=== PATIENT | male | born 1950 | race Caucasian/White ===

== ENCOUNTER 2023-10-11 09:05 | Inpatient (IN) | payer MEDICARE, SELFPAY ==
[2023-10-11] VITALS (26 sets, daily range): BP systolic 110–153; BP diastolic 52–91; PULSE 79–114; RESP 10–24; TEMP 36.6–37.1; O2SAT 85–96; BMI 33.4; BMI 32.6
--- NOTE | 2023-10-11 09:21 | ECG_ITS ---
[facility] Test Date: 2023-10-11 Pat Name: LEONARD FAUSTIN Department: Room: - Gender: Male Schedule Analyst: : 1950 Requested By: DAVID GALDAMEZ Order Number: [id number] Reading MD: BORIS BARTHOLOMEW Measurements Intervals [place] Rate: 110 P: 34 NH: 98 QRS: 83 QRSD: 96 T: 69 QT: 330 QTc: 395 Interpretive Statements 1120 Sinus tachycardia 2210 Short NH interval 9150 abnormal ECG Compared to ECG 05/05/2018 10:08:36 Short NH interval now present Sinus rhythm no longer present ST (T wave) deviation no longer present Electronically Signed On 10-12-2023 11:01:37 EST by BORIS BARTHOLOMEW
--- NOTE | 2023-10-11 09:26 | ED_ITS ---
HPI - General Adult General Chief complaint: Chest Pain Stated complaint: DIARRHEA/STOMACH PAIN/TIGHTNESS Time Seen by Provider: 10/11/23 09:03 Source: patient Mode of arrival: walk-in Limitations: no limitations History of Present Illness HPI narrative: Abdominal pain started about 5 days ago. He has had episodes of nausea and vomiting. He initially told me that he had blood and some episodes of the vomit. He later told the ED nurse that he spoke incorrectly and actually had been coughing up some phlegm that had blood in it. He also admitted to having profuse diarrhea. He tell me that his abdomen felt bloated and diffusely tender. Any attempt to eat over the last 24 hours was because the pain increased. He tell me that he feels like things are not moving out of his stomach. He also complains of persistent cough for the last several weeks and persistent shortness of breath with exertion. Prior surgical history includes right inguinal hernia repair and cholecystectomy, according to what the patient told me. Related Data Home Medications Medication Instructions Recorded Confirmed famotidine 20 mg tablet 20 mg PO .QHS 10/11/23 10/11/23 fluticasone fur. 100 mcg-umeclid 1 inh inhalation Q24H 10/11/23 10/11/23 62.5 mcg-vilant 25 mcg inhalat.powder (Trelegy Ellipta) furosemide 20 mg tablet 20 mg PO .QD PRN edema 10/11/23 10/11/23 ipratropium 0.5 mg-albuterol 3 mg 3 ml inhalation Q4H PRN shortness 10/11/23 10/11/23 (2.5 mg base)/3 mL nebulization of breath or wheezing soln metformin 500 mg tablet 500 mg PO QDAY 10/11/23 10/11/23 montelukast 10 mg tablet 10 mg PO .QHS 10/11/23 10/11/23 olmesartan 20 mg tablet 20 mg PO QDAY 10/11/23 10/11/23 rivaroxaban 20 mg tablet (Xarelto) 20 mg PO Q24H 10/11/23 10/11/23 Allergies Allergy/AdvReac Type Severity Reaction Status Date / Time No Known Drug Allergies Allergy Verified 10/11/23 09:14 PFSH PFSH Social History Smoking status: Former smoker Exam Narrative Exam Narrative: Nurses notes and vital signs reviewed and patient is not hypoxic. Afebrile General: Well-appearing and in no apparent distress. Skin: Warm, dry, no pallor noted. No rash to abdomen or flank. Head: Normocephalic, atraumatic. Neck: Supple, non-tender. Eye: Pupils are equal, round and EOMI. No scleral icterus. Cardiovascular: Regular Rate and Rhythm without murmur, gallop or rub. Respiratory: No accessory muscle use or respiratory distress. Lungs are clear to auscultation, no wheezing, rales or rhonchi Back: No CVA tenderness Musculoskeletal: normal ROM GI: Abdomen is soft, mildly distended. Normal bowel sounds. No masses appreciated. Diffuse tenderness to palpation. No rebound, guarding, or rigidity noted. Neurological: A&O x4. No cranial nerve dysfunction observed. No truncal ataxia. Moves all extremities. Sensation intact. Psychiatric: Cooperative and interactive. Normal mood and affect. Constitutional Vital Signs, click to edit/add: Last Vital Signs Temp 98.7 F 10/11/23 14:18 Pulse 82 10/11/23 14:18 Resp 20 10/11/23 14:18 BP 110/67 10/11/23 14:18 Pulse Ox 90 L 10/11/23 14:18 O2 Del Method Nasal Cannula 10/11/23 14:18 O2 Flow Rate 3.5 10/11/23 14:18 Course Vital Signs Vital signs: Vital Signs Pulse Rate 114 H 10/11/23 09:08 Respiratory Rate 20 10/11/23 09:08 Blood Pressure 153/91 H 10/11/23 09:08 Pulse Oximetry 86 L 10/11/23 09:08 Oxygen Delivery Method Room Air 10/11/23 09:08 Temperature 98.7 F 10/11/23 14:18 Pulse Rate 82 10/11/23 14:18 Respiratory Rate 20 10/11/23 14:18 Blood Pressure 110/67 10/11/23 14:18 Pulse Oximetry 90 L 10/11/23 14:18 Oxygen Delivery Method Nasal Cannula 10/11/23 14:18 Oxygen Delivery Flow Rate 3.5 10/11/23 14:18 Medical Decision Making MDM Narrative Medical decision making narrative: Patient was placed on silk top hat body maker and EKG obtained. Blood drawn and sent for evaluation. GI panel was also ordered. CT scan of the abdomen pelvis was ordered to be obtained with IV contrast. Our CT scanner is currently down. Patient will be sent [facility] by ambulance and then brought back after CT scan obtained. Patient received NS IVF, IV Zofran and IV Dilaudid for his symptoms. CT did not reveal any worrisome findings to account for his abdominal pain/GI symptoms. Patient found to be hypoxic on arrival - he has long history of tobacco use, chronic emphysema, likely COPD. He said that he has chronic hypoxia - usually 88-90% on room air. He has never seen a resourcing advisor. He does not have rescue inhaler at home. He admitted to cough producing whitish sputum/phlegm that began several weeks ago and has persisted. No treatment initiated and he did not see his PCP or other providers about this. Radiologist incorrectly identified the electrode wires as central lines on the formal report. patient previously had bilateral PEs that were apparently removed at hospital in [place]. He already got CT abd/pelvis of abdomen -0 we could not get IV large enough for power inecting to rule out PE. He is already on Eliquis daily, Case discussed with Dr Anguiano. He agreed to admit the patient for further treatment of COPD exacerbation and associated hypoxia. Patient may qualify for home O2. He received IV Solumedrol and duoneb therapy in the ED prior to got to [facility] for [place]. He said he does not feel much better after treatment. He is agreeable to admission. Lab Data Lab results reviewed: Yes I reviewed the patient's lab results Labs: Lab Results 10/11/23 10/11/23 10/11/23 Range/Units 09:20 09:30 09:43 WBC 9.8 (4.0-11.0) 10^3/uL RBC 5.11 (4.70-6.10) 10^6/uL Hgb 15.4 (14.0-18.0) g/dL Hct 47.8 (42.0-54.0) % MCV 93.5 (80.0-94.0) fL MCH 30.1 (25.9-34.0) pg MCHC 32.2 (29.9-35.2) g/dL RDW 13.5 (11.0-15.0) % Plt Count 216 (150-450) 10^3/uL MPV 9.7 (9.5-13.5) fL Neut % (Auto) 83.0 H (43.0-75.0) % Lymph % (Auto) 8.6 L (20.5-60.0) % Mccormick % (Auto) 7.8 (1.7-12.0) % Eos % (Auto) 0.1 L (0.9-7.0) % Baso % (Auto) 0.3 (0.2-2.0) % Neut # (Auto) 8.1 H (1.4-6.5) 10^3/uL Lymph # (Auto) 0.8 L (1.2-3.8) 10^3/uL Mccormick # (Auto) 0.8 (0.3-0.8) 10^3/uL Eos # (Auto) 0.0 (0.0-0.7) 10^3/uL Baso # (Auto) 0.0 (0.0-0.1) 10^3/uL Abs Immat Gran (auto) 0.02 (0.00-0.03) 10^3/uL Imm/Tot Granulo (auto) 0.2 (0.0-0.5) % PT 11.3 (9.0-11.6) sec INR 1.07 APTT 39.3 H (22.3-36.2) sec Sodium 134 L (136-145) mmol/L Potassium 3.8 (3.5-5.1) mmol/L Chloride 97 L (98-107) mmol/L Carbon Dioxide 25.8 (21.0-32.0) mmol/L Anion Gap 15.0 BUN 20.0 H (7.0-18.0) mg/dL Creatinine 1.06 (0.70-1.30) mg/dL Est GFR ( Amer) >60 (>=60) Est GFR (Non-Af Amer) >60 (>=60) BUN/Creatinine Ratio 18.9 Glucose 109 H (74-106) mg/dL Lactate 1.4 (0.4-2.0) mmol/L Calcium 8.2 L (8.5-10.1) mg/dL Magnesium 2.1 (1.8-2.4) mg/dL Total Bilirubin 1.1 H (0.2-1.0) mg/dL Direct Bilirubin 0.3 H (0.0-0.2) mg/dL AST 31 (15-37) U/L ALT 36 (16-63) U/L Alkaline Phosphatase 82 (46-116) U/L Troponin I High Sens <4.0 L (4.0-76.1) pg/mL NT-Pro-B Natriuret Pep 38.0 (<=900.0) pg/mL Total Protein 7.4 (6.4-8.2) g/dL Albumin 3.4 (3.4-5.0) g/dL Globulin 4.0 g/dL Albumin/Globulin Ratio 0.9 Procalcitonin <0.05 (0.00-0.50) ng/mL Influenza Type A Ag Negative Influenza Type B Ag Negative SARS-CoV-2 Ag (CV2AG) Negative (NEGATIVE) Blood Type Antibody Screen 10/11/23 Range/Units 09:55 WBC (4.0-11.0) 10^3/uL RBC (4.70-6.10) 10^6/uL Hgb (14.0-18.0) g/dL Hct (42.0-54.0) % MCV (80.0-94.0) fL MCH (25.9-34.0) pg MCHC (29.9-35.2) g/dL RDW (11.0-15.0) % Plt Count (150-450) 10^3/uL MPV (9.5-13.5) fL Neut % (Auto) (43.0-75.0) % Lymph % (Auto) (20.5-60.0) % Mccormick % (Auto) (1.7-12.0) % Eos % (Auto) (0.9-7.0) % Baso % (Auto) (0.2-2.0) % Neut # (Auto) (1.4-6.5) 10^3/uL Lymph # (Auto) (1.2-3.8) 10^3/uL Mccormick # (Auto) (0.3-0.8) 10^3/uL Eos # (Auto) (0.0-0.7) 10^3/uL Baso # (Auto) (0.0-0.1) 10^3/uL Abs Immat Gran (auto) (0.00-0.03) 10^3/uL Imm/Tot Granulo (auto) (0.0-0.5) % PT (9.0-11.6) sec INR APTT (22.3-36.2) sec Sodium (136-145) mmol/L Potassium (3.5-5.1) mmol/L Chloride (98-107) mmol/L Carbon Dioxide (21.0-32.0) mmol/L Anion Gap BUN (7.0-18.0) mg/dL Creatinine (0.70-1.30) mg/dL Est GFR ( Amer) (>=60) Est GFR (Non-Af Amer) (>=60) BUN/Creatinine Ratio Glucose (74-106) mg/dL Lactate (0.4-2.0) mmol/L Calcium (8.5-10.1) mg/dL Magnesium (1.8-2.4) mg/dL Total Bilirubin (0.2-1.0) mg/dL Direct Bilirubin (0.0-0.2) mg/dL AST (15-37) U/L ALT (16-63) U/L Alkaline Phosphatase (46-116) U/L Troponin I High Sens (4.0-76.1) pg/mL NT-Pro-B Natriuret Pep (<=900.0) pg/mL Total Protein (6.4-8.2) g/dL Albumin (3.4-5.0) g/dL Globulin g/dL Albumin/Globulin Ratio Procalcitonin (0.00-0.50) ng/mL Influenza Type A Ag Influenza Type B Ag SARS-CoV-2 Ag (CV2AG) (NEGATIVE) Blood Type A Positive Antibody Screen Negative Imaging Data CT abd/pelvis & CXR: My impression: no central lines - 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 Bilateral central lines. Electronically authenticated by: KHLOE ODELL Date: 10/11/2023 11:40 ECG Data Attestation: I personally reviewed and interpreted this ECG as follows: Interpretation: EKG interpretation: Emergency Department physician interpretation. Sinus tachycardia at 110bpm. Normal axis, short SC interval and no ST segment elevation or depression. Discharge Plan Discharge Chief Complaint: Chest Pain Clinical Impression: Hypoxia, COPD exacerbation Patient Disposition: Admitted as Observation Time of Disposition Decision: 14:42
[2023-10-11] MEDS: 0.9 % SODIUM CHLORIDE 1,000 ML 999 ML IV (09:53)
[2023-10-11] MEDS: ONDANSETRON PF 4 MG/2 ML VIAL IV (09:54)
[2023-10-11] MEDS: HYDROMORPHONE HCL 0.5 MG/0.5 ML SYRINGE IV (09:55)
[2023-10-11 10:09] LABS: Basophils Percent Auto 0.3 % (0.2-2.0); Eosinophils Percent Auto 0.1 % (0.9-7.0); Hematocrit 47.8 % (42.0-54.0); Hemoglobin 15.4 g/dL (14.0-18.0); Immature Granulocytes Abs Auto 0.02 10^3/uL (0.00-0.03); Immature Granulocytes Pct Auto 0.2 % (0.0-0.5); Lymphocytes Absolute Auto 0.8 10^3/uL (1.2-3.8); Lymphocytes Percent Auto 8.6 % (20.5-60.0); Mean Corpuscular HGB Conc 32.2 g/dL (29.9-35.2); Mean Corpuscular Hemoglobin 30.1 pg (25.9-34.0); Mean Corpuscular Volume 93.5 fL (80.0-94.0); Mean Platelet Volume 9.7 fL (9.5-13.5); Monocytes Absolute Auto 0.8 10^3/uL (0.3-0.8); Monocytes Percent Auto 7.8 % (1.7-12.0); Neutrophils Absolute Auto 8.1 10^3/uL (1.4-6.5); Platelet Count 216 10^3/uL (150-450); Red Blood Count 5.11 10^6/uL (4.70-6.10); Red Cell Distribution Width 13.5 % (11.0-15.0); White Blood Count 9.8 10^3/uL (4.0-11.0)
[2023-10-11 10:20] LABS: Magnesium 2.1 mg/dL (1.8-2.4)
[2023-10-11 10:27] LABS: Alanine Aminotransferase 36 U/L (16-63); Albumin Globulin Ratio 0.9; Albumin Level 3.4 g/dL (3.4-5.0); Alkaline Phosphatase 82 U/L (46-116); Aspartate Amino Transferase 31 U/L (15-37); BUN Creatinine Ratio 18.9; Bilirubin Total 1.1 mg/dL (0.2-1.0); Calcium 8.2 mg/dL (8.5-10.1); Carbon Dioxide 25.8 mmol/L (21.0-32.0); Chloride 97 mmol/L (98-107); Estimated GFR (African America >60 (>=60); Estimated GFR (Non-African Ame >60 (>=60); Glucose 109 mg/dL (74-106); Potassium 3.8 mmol/L (3.5-5.1); Sodium 134 mmol/L (136-145); Total Protein 7.4 g/dL (6.4-8.2)
[2023-10-11 10:28] LABS: Lactate/Lactic Acid 1.4 mmol/L (0.4-2.0)
[2023-10-11 10:32] LABS: Influenza Virus A Antigen Negative; Influenza Virus B Antigen Negative; Internal Control Within Normal Limits; SARS-CoV-2 Ag NEGATIVE (NEGATIVE)
[2023-10-11 10:34] LABS: INR 1.07; Partial Thromboplastin Time 39.3 sec (22.3-36.2); Prothrombin Time 11.3 sec (9.0-11.6)
--- NOTE | 2023-10-11 10:58 | XR_ITS ---
The [address] [address] Patient Name: LEONARD FAUSTIN MRN: [id number] date: 1950 Sex: M Assigned Patient Location: ER Current Patient Location: ER Accession/Order Number: [id number] Exam Date: 10/11/2023 11:10 Report Date: 10/11/2023 11:40 At the request of: KATHERYN BLOOM Procedure: XR chest 1V EXAM: XR chest 1V HISTORY: shortness of breath COMPARISON: Chest x-ray 09/02/2018. CT chest 03/13/2022. TECHNIQUE: AP portable upright chest x-ray. FINDINGS: Right lung, left upper midlung appear clear. No definite abnormality left lung base although assessment somewhat limited overlying soft tissues. No infiltrate or edema seen. Cardiac silhouette prominent accentuated by magnification. Right and left central lines noted, tips poorly visualized but probably in the area of the right atrium.. No pleural effusion or pneumothorax. XR/XR chest 1V IMPRESSION: No acute disease. Bilateral central lines. Electronically authenticated by: KHLOE ODELL Date: 10/11/2023 11:40
[2023-10-11] MEDS: METHYLPREDNISOLONE SOD SUCC PF 125 MG/2 ML VIAL IVP (11:13)
[2023-10-11] MEDS: IPRATROPIUM/ALBUTEROL SULFATE 3 ML AMPUL.NEB IH ×3 (11:26→22:32)
[2023-10-11 11:40] LABS: Troponin I High Sensitivity <4.0 pg/mL (4.0-76.1)
[2023-10-11 11:57] LABS: PROCALCITONIN <0.05 ng/mL (0.00-0.50)
[2023-10-11 14:18] LABS: Bilirubin Direct 0.3 mg/dL (0.0-0.2)
[2023-10-11] MEDS: LEVOFLOXACIN IN DEXTROSE 5 % 750 MG/150 ML IV.SOLN 100 MG IV (14:48)
--- NOTE | 2023-10-11 15:47 | P.HP_ITS ---
<Statement entered by Brandon Anguiano MD - 10/11/23 17:45> This documentation has been reviewed and approved. Patient not seen, chart reviewed. Reviewed notes from nurse practitioner. Agree with above findings. Possible mild dehydration with elevated BUN and mildly diminished sodium. Repeat labs in AM. Borderline hyperbilirubinemia- possibly chronic will repeat labs in AM. 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 He reports having COVID in August and has not felt well since then. His cough is persistent and difficult to mobilize phlegm. He also c/o increased phlegm production after eating and drinking, although he denies aspiration. He presented to the ED for further evaluation. Work up in the ED revealed hypoxia (85% on RA), but the remaining work up was mostly benign except for a mildly elevated bili (1.1). A chest x-ray was n egative for acute disease and an EKG revealed sinus tachycardia. CT of the abdomen was obtained due to his abdominal complaints and this was negative for acute findings. The CT did note a 1.8 cm nonspecific cystic lesion that could represent a pancreatic IPMN. A dedicated pancreas/biliary MR with contrast was recommended if further workup is clinically indicated. As the patient was wheezing and hypoxic, he is being admitted in observation to the hospitalist service for acute COPD exacerbation. At the time of my exam the patient just arrived to the medical surgical floor. He is not in any respiratory distress and is quite voluble with his conversation. He does report that he has qualified for home O2 in the past but refuses to use home O2. His main complaint is persistent cough after having COVID and tenacious phlegm. He admits that his abdominal pain is at the level of the diaphragm and is likely secondary to persistent coughing. His lung sounds are quite tight and we will treat with high-dose IV steroids, azithromycin for suspected associated bronchitis, and O2 supplementation to keep his sats at 90% or above. Opioid HPI Opioid Management Most Recent Opioid Data: Last Pain Assessment 10/11/23 17:30 Last ORT Total Score 3 10/11/23 16:05 Last ORT Risk Category Low Risk 10/11/23 16:05 Review of Systems ROS Status of ROS 10 or more systems reviewed and unremark able except as noted in history and below PFSH PFSH Medical History (Updated 10/11/23 @ 17:36 by Celia Hall NP) Pulmonary embolism ?I26.99 - Other pulmonary embolism without acute cor pulmonale (ICD-10) HTN (hypertension) ?I10 - Essential (primary) hypertension (ICD-10) Prediabetes ?R73.03 - Prediabetes (ICD-10) Trigger finger of left hand ?M65.30 - Trigger finger, unspecified finger (ICD-10) Chronic bronchitis ?J42 - Unspecified chronic bronchitis (ICD-10) Surgical History (Updated 10/11/23 @ 16:17 by Claudia Gasca LPN) H/O neck surgery ?Z98.890 - Other specified postprocedural states (ICD-10) Hx of hernia repair ?Z98.890 - Other specified postprocedural states (ICD-10) ?Z87.19 - Personal history of other diseases of the digestive system (ICD-10) History of cholecystectomy ?Z90.49 - Acquired absence of other specified parts of digestive tract (ICD- 10) History of tonsillectomy ?Z90.89 - Acquired absence of other organs (ICD-10) History of lung surgery ?Z98.890 - Other specified postprocedural states (ICD-10) History of knee surgery ?Z98.890 - Other specified postprocedural states (ICD-10) Family History (Updated 10/11/23 @ 16:13 by Claudia Gasca LPN) Mother Family history of myocardial infarction Family history of cancer Father Family history of COPD (chronic obstructive pulmonary disease) Family history of cancer Sister Family history of cancer Family history of diabetes mellitus Social History Smoking status: Former smoker Highest level of school completed/degree received: high school graduate Meds Home Medications and Allergies Home Medications Medication Instructions Recorded Confirmed Type famotidine 20 mg tablet 20 mg PO .QHS 10/11/23 10/11/23 History fluticasone fur. 100 mcg-umeclid 1 inh inhalation Q24H 10/11/23 10/11/23 History 62.5 mcg-vilant 25 mcg inhalat.powder (Trelegy Ellipta) furosemide 20 mg tablet 20 mg PO .QD PRN edema 10/11/23 10/11/23 History ipratropium 0.5 mg-albuterol 3 mg 3 ml inhalation Q4H PRN shortness 10/11/23 10/11/23 History (2.5 mg base)/3 mL nebulization of breath or wheezing soln metformin 500 mg tablet 500 mg PO QDAY 10/11/23 10/11/23 History montelukast 10 mg tablet 10 mg PO .QHS 10/11/23 10/11/23 History olmesartan 20 mg tablet 20 mg PO QDAY 10/11/23 10/11/23 History rivaroxaban 20 mg tablet (Xarelto) 20 mg PO Q24H 10/11/23 10/11/23 History Allergies Allergy/AdvReac Type Severity Reaction Status Date / Time No Known Drug Allergies Allergy Verified 10/11/23 09:14 Exam Constitutional Vital Signs, click to edit/add: Last Vital Signs Temp 98.7 F 10/11/23 14:18 Pulse 82 10/11/23 14:18 Resp 20 10/11/23 14:18 BP 110/67 10/11/23 14:18 Pulse Ox 90 L 10/11/23 14:18 O2 Del Method Nasal Cannula 10/11/23 14:18 O2 Flow Rate 3.5 10/11/23 14:18 Common normals: no apparent distress, oriented x3, alert and well nourished General appearance: cooperative Orientation/consciousness: Yes awake [facility] Common normals: normocephalic, head/scalp atraumatic, hearing grossly normal bilaterally, external nose normal and moist oral mucous membranes Eye Common normals: PERRL, EOMs intact bilaterally, conjunctivae normal and no scleral icterus Alignment: alignment normal Eyelid: eyelids normal Neck & C-Spine Common normals: full ROM, supple and no JVD Chest Common normals: inspection of chest normal Chest: symmetrical chest wall rise Respiratory Common normals: normal respiratory effort, no retractions and no use of accessory muscles Effort & inspection: able to speak in complete sentences Auscultation: wheezes (EE faint throughout) and diminished lung sounds (Throughout. Very tight, poor air exchange) Cardio Common normals: no JVD, regular rate, regular rhythm, S1 normal heart sound, S2 normal heart sound, no gallops, no clicks, no murmurs, no rub and peripheral pulses 2+ throughout GI Common normals: Normal to inspection, nondistended, normoactive bowel sounds present, soft to palpation, non-tender, no hepatosplenomegaly, no masses and no bruits Bladder/kidney exam: bladder normal to palpation Back & Pelvis Common normals: thoracic and lumbar spine normal to inspection Extremity Common normals: normal capillary refill and no pedal edema General: normal exam except as noted; no clubbing and no cyanosis Neuro [place] Coma Scale: GCS not evaluated Common normals: CN's II-XII intact bilaterally, moves all extremities and no focal motor deficits Motor exam: strength 5/5 throughout Psych Common normals: mental status grossly normal, thought process normal, affect normal and activity/motor behavior normal Results Labs Labs: Short CBC 10/11/23 Range/Units 09:30 WBC 9.8 (4.0-11.0) 10^3/uL Hgb 15.4 (14.0-18.0) g/dL Hct 47.8 (42.0-54.0) % Plt Count 216 (150-450) 10^3/uL BMP 10/11/23 09:30 Sodium 134 L Potassium 3.8 Chloride 97 L Carbon Dioxide 25.8 BUN 20.0 H Creatinine 1.06 Glucose 109 H Calcium 8.2 L Liver Function 10/11/23 10/11/23 Range/Units 09:20 09:30 Total Bilirubin 1.1 H (0.2-1.0) mg/dL Direct Bilirubin 0.3 H (0.0-0.2) mg/dL AST 31 (15-37) U/L ALT 36 (16-63) U/L Alkaline Phosphatase 82 (46-116) U/L Albumin 3.4 (3.4-5.0) g/dL Pulse Oximetry Attestation: I have reviewed the pertinent pulse oximetry results. Imaging Chest x-ray: Attestation: I have reviewed the pertinent imaging results. Radiologist's impression: IMPRESSION: No acute disease. Bilateral central lines. Addendum: No central lines are present. The findings are due to monitoring leads. CT scan - abdomen: Attestation: I have reviewed the pertinent imaging results. Radiologist's impression: Impression: No acute process in the abdomen/pelvis. 1.8 cm cystic lesion of the pancreatic head/uncinate, unspecific, but much may represent pancreatic IPMN. Compare with prior studies, if available. Could further characterize with dedicated pancreas biliary MR with contrast as clinically indicated. Assessment and Plan Assessment and Plan (1) COPD exacerbation: Assessment and Plan: Acute * Adm observation * Duonebs and pulmicort nebs scheduled, PRN albuterol nebs * Solumedrol 125 mg given in ED, continue w/ 40 mg q8h IVP * Azithromycin for suspected associated bronchitis * Inf/Covid swabs neg. 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
[2023-10-11 16:36] LABS: Glucometer 173 mg/dL (74-106)
[2023-10-11 16:39] LABS: Adenovirus NOT DETECTED (NOT DETECTE); Bordetella parapertussis NOT DETECTED (NOT DETECTE); Coronavirus 229E NOT DETECTED (NOT DETECTE); Coronavirus HKU1 NOT DETECTED (NOT DETECTE); Coronavirus NL63 NOT DETECTED (NOT DETECTE); Coronavirus OC43 NOT DETECTED (NOT DETECTE); Human Metapneumovirus NOT DETECTED (NOT DETECTE); Human Rhinovirus/Enterovirus NOT DETECTED (NOT DETECTE); Influenza B NOT DETECTED (NOT DETECTE); Mycoplasma pneumoniae NOT DETECTED (NOT DETECTE); Parainfluenza Virus 1 NOT DETECTED (NOT DETECTE); Parainfluenza Virus 2 NOT DETECTED (NOT DETECTE); Parainfluenza Virus 3 NOT DETECTED (NOT DETECTE); Parainfluenza Virus 4 NOT DETECTED (NOT DETECTE); Respiratory Syncytial Virus NOT DETECTED (NOT DETECTE); SARS-CoV-2 NOT DETECTED (NOT DETECTE)
[2023-10-11] MEDS: GUAIFENESIN 600 MG TAB.ER.12H PO (17:00)
[2023-10-11] MEDS: BENZONATATE 100 MG CAPSULE 200 MG PO (17:00)
[2023-10-11] MEDS: AZITHROMYCIN 500 MG in 0.9 % SODIUM CHLORIDE 250 ML 250 MG IV (17:01)
[2023-10-11] MEDS: INSULIN ASPART 300 UNIT/3 ML PEN SUBQ ×2 (17:02→21:05)
[2023-10-11] MEDS: METHYLPREDNISOLONE SOD SUCC PF 40 MG/ML VIAL IVP (17:07)
--- NOTE | 2023-10-11 17:08 | PC.NURSE ---
called pharmacy and spoke with pharmacist to confirm solumedrol administration time. pharmacy confirms to give at 1700.
[2023-10-11 17:47] LABS: Influenza A\\H3 DETECTED (NOT DETECTE)
[2023-10-11] MEDS: RIVAROXABAN 10 MG TABLET 20 MG PO (17:49)
[2023-10-11 21:04] LABS: Adenovirus F 40/41 NOT DETECTED (NOT DETECTE); Astrovirus NOT DETECTED (NOT DETECTE); Campylobacter NOT DETECTED (NOT DETECTE); Cryptosporidium NOT DETECTED (NOT DETECTE); Cyclospora cayetanensis NOT DETECTED (NOT DETECTE); Entamoeba histolytica NOT DETECTED (NOT DETECTE); Enteroaggregative E.coli NOT DETECTED (NOT DETECTE); Enteropathogenic E.coli NOT DETECTED (NOT DETECTE); Enterotoxigenic E. coli NOT DETECTED (NOT DETECTE); Giardia lamblia NOT DETECTED (NOT DETECTE); Norovirus GI/GII NOT DETECTED (NOT DETECTE); Plesiomonas shigelloides NOT DETECTED (NOT DETECTE); Rotavirus A NOT DETECTED (NOT DETECTE); Salmonella NOT DETECTED (NOT DETECTE); Sapovirus NOT DETECTED (NOT DETECTE); Shiga-like toxin-producing E.C NOT DETECTED (NOT DETECTE); Shigella/Enteroinvasive E.coli NOT DETECTED (NOT DETECTE); Vibrio NOT DETECTED (NOT DETECTE); Vibrio cholerae NOT DETECTED (NOT DETECTE); Yersinia enterocolitica NOT DETECTED (NOT DETECTE)
[2023-10-11] MEDS: FAMOTIDINE 20 MG TABLET PO (21:05)
[2023-10-11 21:06] LABS: Glucometer 280 mg/dL (74-106)
[2023-10-11] MEDS: BUDESONIDE 0.5 MG/2 ML AMPULE NEB IH (22:32)
--- NOTE | 2023-10-11 22:53 | RESP.RT ---
Titrated to 2 lpm
[2023-10-12] VITALS (15 sets, daily range): BP systolic 112–148; BP diastolic 54–75; PULSE 71–100; RESP 18–20; TEMP 36.4–36.8; O2SAT 86–95
[2023-10-12] MEDS: BENZONATATE 100 MG CAPSULE 200 MG PO ×3 (00:51→17:04)
[2023-10-12] MEDS: METHYLPREDNISOLONE SOD SUCC PF 40 MG/ML VIAL IVP ×3 (00:51→17:04)
[2023-10-12] MEDS: IPRATROPIUM/ALBUTEROL SULFATE 3 ML AMPUL.NEB IH ×6 (04:53→23:17)
[2023-10-12 05:11] LABS: Basophils Percent Auto 0.2 % (0.2-2.0); Hematocrit 45.4 % (42.0-54.0); Hemoglobin 14.4 g/dL (14.0-18.0); Immature Granulocytes Abs Auto 0.02 10^3/uL (0.00-0.03); Immature Granulocytes Pct Auto 0.4 % (0.0-0.5); Lymphocytes Absolute Auto 0.5 10^3/uL (1.2-3.8); Lymphocytes Percent Auto 9.9 % (20.5-60.0); Mean Corpuscular HGB Conc 31.7 g/dL (29.9-35.2); Mean Corpuscular Hemoglobin 29.8 pg (25.9-34.0); Mean Platelet Volume 9.7 fL (9.5-13.5); Monocytes Absolute Auto 0.2 10^3/uL (0.3-0.8); Monocytes Percent Auto 4.3 % (1.7-12.0); Neutrophils Absolute Auto 4.4 10^3/uL (1.4-6.5); Neutrophils Percent Auto 85.2 % (43.0-75.0); Platelet Count 203 10^3/uL (150-450); Red Blood Count 4.83 10^6/uL (4.70-6.10); Red Cell Distribution Width 13.3 % (11.0-15.0); White Blood Count 5.1 10^3/uL (4.0-11.0)
[2023-10-12 05:24] LABS: Alanine Aminotransferase 36 U/L (16-63); Albumin Globulin Ratio 0.8; Albumin Level 3.1 g/dL (3.4-5.0); Alkaline Phosphatase 76 U/L (46-116); Anion Gap 13.2; Aspartate Amino Transferase 21 U/L (15-37); BUN Creatinine Ratio 19.3; Bilirubin Total 0.6 mg/dL (0.2-1.0); Calcium 8.2 mg/dL (8.5-10.1); Carbon Dioxide 25.5 mmol/L (21.0-32.0); Chloride 101 mmol/L (98-107); Estimated GFR (African America >60 (>=60); Estimated GFR (Non-African Ame >60 (>=60); Globulin 4.1 g/dL; Glucose 208 mg/dL (74-106); Potassium 3.7 mmol/L (3.5-5.1); Sodium 136 mmol/L (136-145); Total Protein 7.2 g/dL (6.4-8.2)
[2023-10-12] MEDS: GUAIFENESIN 600 MG TAB.ER.12H PO ×2 (06:25→17:04)
[2023-10-12 07:50] LABS: Glucometer 203 mg/dL (74-106)
[2023-10-12 08:08] LABS: Bilirubin Urine NEGATIVE (NEGATIVE); Blood Urine TRACE-I (NEGATIVE); Clarity Urine CLEAR (CLEAR); Color Urine YELLOW (YELLOW); Glucose Urine UA 100 mg/dL (NEGATIVE); Ketones Urine NEGATIVE (NEGATIVE); Leukocyte Esterase Urine NEGATIVE (NEGATIVE); Nitrite Urine NEGATIVE (NEGATIVE); Protein Urine TRACE mg/dL (NEG/TRACE); Specific Gravity Urine >=1.030 (1.005-1.025); Urobilinogen Urine 0.2 EU/dL (0.2-1.0)
[2023-10-12 08:16] LABS: Urine Microscopic Indicated NO
[2023-10-12] MEDS: LOSARTAN POTASSIUM 50 MG TABLET PO (08:35)
[2023-10-12] MEDS: LACTATED RINGER'S SOLUTION 1,000 ML 125 ML IV ×2 (08:36→17:05)
[2023-10-12] MEDS: INSULIN ASPART 300 UNIT/3 ML PEN SUBQ ×4 (08:36→21:34)
[2023-10-12] MEDS: BUDESONIDE 0.5 MG/2 ML AMPULE NEB IH ×2 (10:23→23:17)
[2023-10-12 11:31] LABS: Glucometer 206 mg/dL (74-106)
--- NOTE | 2023-10-12 12:06 | PM.IMPN1 ---
Progress Note: A&P Assessment and Plan (1) COPD exacerbation: Assessment and Plan: Chronic obstructive pulmonary disease exacerbation likely secondary to milligrams a infection. Continue with IV Solu-Medrol along with inhaled bronchodilators. Patient is also on azithromycin. Continue with close clinical monitoring. (2) Respiratory failure with hypoxia: Assessment and Plan: Acutely hypoxic likely secondary to chronic obstructive pulmonary disease exacerbation. Eighty-seven percent on room air earlier today. Comfortable on 2 L of oxygen via nasal cannula. Wean off oxygen as tolerated. Continue with systemic steroids,duonebs, azithromycin. Qualifiers: Chronicity: acute Qualified Code(s): J96.01 - Acute respiratory failure with hypoxia (3) Influenza A: Assessment and Plan: Rapid isolation. Started on Tamiflu. Supportive care. (4) Diarrhea: Assessment and Plan: Likely because of influenza. Resolved. Monitor. Gastrointestinal panel is negative Qualifiers: Diarrhea type: presumed infectious Qualified Code(s): R19.7 - Diarrhea, unspecified (5) Prediabetes: Assessment and Plan: Closely monitor blood glucoses while on the steroids. Sliding scale insulin. (6) HTN (hypertension): Assessment and Plan: Continue with home meds. Blood pressure is at goal. Qualifiers: Hypertension type: primary hypertension Qualified Code(s): I10 - Essential (primary) hypertension (7) Hx pulmonary embolism: Assessment and Plan: [facility] - PN: Subj Subjective Interval history: Seen and examined. Patient reports feeling better but still experiences dyspnea on exertion. No overnight events. Exam Constitutional Vital Signs, click to edit/add: Last Vital Signs Temp 98.3 F 10/12/23 08:47 Pulse 81 10/12/23 10:25 Resp 18 10/12/23 08:47 BP 138/75 10/12/23 08:47 Pulse Ox 93 L 10/12/23 10:25 O2 Del Method Nasal Cannula 10/12/23 10:25 O2 Flow Rate 2 10/12/23 10:25 Documenting provider has reviewed patient's vital signs: yes Common normals: no apparent distress and oriented x3 HENMT Common normals: normocephalic and head/scalp atraumatic Respiratory Common normals: normal respiratory effort Effort & inspection: able to speak in complete sentences Auscultation: wheezes expiratory wheezes and throughout Other: Prolonged expiratory phase. Cardio Common normals: no JVD, regular rate, regular rhythm, S1 normal heart sound and S2 normal heart sound GI Common normals: Normal to inspection, nondistended, normoactive bowel sounds present Extremity Common normals: no clubbing, cyanosis or edema Neuro Common normals: oriented x3, CN's II-XII intact bilaterally, moves all extremities and no focal motor deficits Psych Common normals: mental status grossly normal and thought process normal Internal Medicine - PN: Obj Da Labs Labs: Laboratory Results - last 24 hr 10/11/23 10/11/23 10/11/23 09:20 09:43 16:35 WBC RBC Hgb Hct MCV MCH MCHC RDW Plt Count MPV Neut % (Auto) Lymph % (Auto) [place] % (Auto) Eos % (Auto) Baso % (Auto) Neut # (Auto) Lymph # (Auto) [place] # (Auto) Eos # (Auto) Baso # (Auto) Abs Immat Gran (auto) Imm/Tot Granulo (auto) Sodium Potassium Chloride Carbon Dioxide Anion Gap BUN Creatinine Est GFR ( Amer) Est GFR (Non-Af Amer) BUN/Creatinine Ratio Glucose Calcium Total Bilirubin Direct Bilirubin 0.3 H AST ALT Alkaline Phosphatase Total Protein Albumin Globulin Albumin/Globulin Ratio Urine Color Urine Clarity Urine pH Ur Specific [place] Urine Protein Urine Glucose (UA) Urine Ketones Urine Occult Blood Urine Nitrite Urine Bilirubin Urine Urobilinogen Ur Leukocyte Esterase Stl C. cayetanensis PCR Stool Rotavirus (PCR) Stool Adenovirus (PCR) Stool Astrovirus (PCR) Stool Campylobacter PCR Stool Cryptosporidium PCR St Sh/Enteroin Ecoli PCR Stl Enterotoxigenic E PCR Stool EPEC (PCR) Stl E. histolytica PCR Stool Giardia Lamblia PCR Stl P. shigelloides PCR Stool Salmonella PCR Stool Sapovirus (PCR) Stl Shiga-like Tx [address] Y.enterocolitica PCR Stl Vibrio cholerae PCR Stl Enteroaggr Ecoli PCR Stl Norovirus GI/GII PCR Specimen Source Adenovirus (PCR) Not detected C. pneumoniae DNA (PCR) Not detected C. difficile Toxin A&B Coronavirus Type OC43 Not detected Coronavirus Type HKU1 Not detected Coronavirus Type 229E Not detected Coronavirus Type NL63 Not detected Human Metapneumovir PCR Not detected Influenza A (H3) PCR Detected A M. pneumoniae (PCR) Not detected Parainfluenza PCR Not detected Parainfluenza 2 (PCR) Not detected Parainfluenza 3 (PCR) Not detected Parainfluenza 4 (PCR) Not detected RSV (RT-PCR) Not detected Entero/Rhino (PCR) Not detected SARS-CoV-2 (PCR) Not detected Vibrio Culture Bordetella pertussis (PCR) Not detected B parapertussis DNA PCR Not detected Influenza Type A (PCR) Not detected Influenza Type B (PCR) Not detected POC Glucose 173 H 10/11/23 10/11/23 10/12/23 20:47 20:55 04:32 WBC 5.1 RBC 4.83 Hgb 14.4 Hct 45.4 MCV 94.0 MCH 29.8 MCHC 31.7 RDW 13.3 Plt Count 203 MPV 9.7 Neut % (Auto) 85.2 H Lymph % (Auto) 9.9 L [place] % (Auto) 4.3 Eos % (Auto) 0.0 L Baso % (Auto) 0.2 Neut # (Auto) 4.4 Lymph # (Auto) 0.5 L [place] # (Auto) 0.2 L Eos # (Auto) 0.0 Baso # (Auto) 0.0 Abs Immat Gran (auto) 0.02 Imm/Tot Granulo (auto) 0.4 Sodium 136 Potassium 3.7 Chloride 101 Carbon Dioxide 25.5 Anion Gap 13.2 BUN 22.0 H Creatinine 1.14 Est GFR ( Amer) >60 Est GFR (Non-Af Amer) >60 BUN/Creatinine Ratio 19.3 Glucose 208 H Calcium 8.2 L Total Bilirubin 0.6 Direct Bilirubin AST 21 ALT 36 Alkaline Phosphatase 76 Total Protein 7.2 Albumin 3.1 L Globulin 4.1 Albumin/Globulin Ratio 0.8 Urine Color Urine Clarity Urine pH Ur Specific [place] Urine Protein Urine Glucose (UA) Urine Ketones Urine Occult Blood Urine Nitrite Urine Bilirubin Urine Urobilinogen Ur Leukocyte Esterase Stl C. cayetanensis PCR Not detected Stool Rotavirus (PCR) Not detected Stool Adenovirus (PCR) Not detected Stool Astrovirus (PCR) Not detected Stool Campylobacter PCR Not detected Stool Cryptosporidium PCR Not detected St Sh/Enteroin Ecoli PCR Not detected Stl Enterotoxigenic E PCR Not detected Stool EPEC (PCR) Not detected Stl E. histolytica PCR Not detected Stool Giardia Lamblia PCR Not detected Stl P. shigelloides PCR Not detected Stool Salmonella PCR Not detected Stool Sapovirus (PCR) Not detected Stl Shiga-like Tx [address] Y.enterocolitica PCR Not detected Stl Vibrio cholerae PCR Not detected Stl Enteroaggr Ecoli PCR Not detected Stl Norovirus GI/GII PCR Not detected Specimen Source Stool Adenovirus (PCR) C. pneumoniae DNA (PCR) C. difficile Toxin A&B Not detected Coronavirus Type OC43 Coronavirus Type HKU1 Coronavirus Type 229E Coronavirus Type NL63 Human Metapneumovir PCR Influenza A (H3) PCR M. pneumoniae (PCR) Parainfluenza PCR Parainfluenza 2 (PCR) Parainfluenza 3 (PCR) Parainfluenza 4 (PCR) RSV (RT-PCR) Entero/Rhino (PCR) SARS-CoV-2 (PCR) Vibrio Culture Not detected Bordetella pertussis (PCR) B parapertussis DNA PCR Influenza Type A (PCR) Influenza Type B (PCR) POC Glucose 280 H 10/12/23 10/12/23 10/12/23 06:26 07:48 11:30 WBC RBC Hgb Hct MCV MCH MCHC RDW Plt Count MPV Neut % (Auto) Lymph % (Auto) [place] % (Auto) Eos % (Auto) Baso % (Auto) Neut # (Auto) Lymph # (Auto) [place] # (Auto) Eos # (Auto) Baso # (Auto) Abs Immat Gran (auto) Imm/Tot Granulo (auto) Sodium Potassium Chloride Carbon Dioxide Anion Gap BUN Creatinine Est GFR ( Amer) Est GFR (Non-Af Amer) BUN/Creatinine Ratio Glucose Calcium Total Bilirubin Direct Bilirubin AST ALT Alkaline Phosphatase Total Protein Albumin Globulin Albumin/Globulin Ratio Urine Color Yellow Urine Clarity Clear Urine pH 6.0 Ur Specific [place] >=1.030 A Urine Protein Trace Urine Glucose (UA) 100 A Urine Ketones Negative Urine Occult Blood Trace-i Urine Nitrite Negative Urine Bilirubin Negative Urine Urobilinogen 0.2 Ur Leukocyte Esterase Negative Stl C. cayetanensis PCR Stool Rotavirus (PCR) Stool Adenovirus (PCR) Stool Astrovirus (PCR) Stool Campylobacter PCR Stool Cryptosporidium PCR St Sh/Enteroin Ecoli PCR Stl Enterotoxigenic E PCR Stool EPEC (PCR) Stl E. histolytica PCR Stool Giardia Lamblia PCR Stl P. shigelloides PCR Stool Salmonella PCR Stool Sapovirus (PCR) Stl Shiga-like Tx [address] Y.enterocolitica PCR Stl Vibrio cholerae PCR Stl Enteroaggr Ecoli PCR Stl Norovirus GI/GII PCR Specimen Source Adenovirus (PCR) C. pneumoniae DNA (PCR) C. difficile Toxin A&B Coronavirus Type OC43 Coronavirus Type HKU1 Coronavirus Type 229E Coronavirus Type NL63 Human Metapneumovir PCR Influenza A (H3) PCR M. pneumoniae (PCR) Parainfluenza PCR Parainfluenza 2 (PCR) Parainfluenza 3 (PCR) Parainfluenza 4 (PCR) RSV (RT-PCR) Entero/Rhino (PCR) SARS-CoV-2 (PCR) Vibrio Culture Bordetella pertussis (PCR) B parapertussis DNA PCR Influenza Type A (PCR) Influenza Type B (PCR) POC Glucose 203 H 206 H
[2023-10-12 16:41] LABS: Glucometer 320 mg/dL (74-106)
[2023-10-12] MEDS: RIVAROXABAN 10 MG TABLET 20 MG PO (17:04)
[2023-10-12] MEDS: AZITHROMYCIN 500 MG in 0.9 % SODIUM CHLORIDE 250 ML 250 MG IV (17:05)
[2023-10-12 20:29] LABS: Glucometer 208 mg/dL (74-106)
--- NOTE | 2023-10-12 20:32 | RESP.RT ---
Titrated to 2 lpm
--- NOTE | 2023-10-12 20:33 | RESP.RT ---
Titrated to 2 lpm
[2023-10-12] MEDS: OSELTAMIVIR PHOSPHATE 75 MG CAPSULE PO (20:35)
[2023-10-12] MEDS: FAMOTIDINE 20 MG TABLET PO (21:33)
[2023-10-12] MEDS: DIPHENHYDRAMINE HCL 25 MG CAPSULE PO (23:35)
[2023-10-13] VITALS (14 sets, daily range): BP systolic 124–150; BP diastolic 58–70; PULSE 84–110; RESP 18–24; TEMP 36.6–36.8; O2SAT 89–95
[2023-10-13] MEDS: METHYLPREDNISOLONE SOD SUCC PF 40 MG/ML VIAL IVP ×3 (00:14→17:48)
[2023-10-13] MEDS: BENZONATATE 100 MG CAPSULE 200 MG PO ×3 (00:14→17:48)
[2023-10-13] MEDS: LACTATED RINGER'S SOLUTION 1,000 ML 125 ML IV (00:14)
[2023-10-13] MEDS: IPRATROPIUM/ALBUTEROL SULFATE 3 ML AMPUL.NEB IH ×6 (03:34→23:12)
[2023-10-13] MEDS: GUAIFENESIN 600 MG TAB.ER.12H PO ×2 (04:26→17:48)
[2023-10-13 05:19] LABS: Basophils Percent Auto 0.1 % (0.2-2.0); Hematocrit 45.2 % (42.0-54.0); Hemoglobin 13.8 g/dL (14.0-18.0); Immature Granulocytes Abs Auto 0.05 10^3/uL (0.00-0.03); Immature Granulocytes Pct Auto 0.4 % (0.0-0.5); Lymphocytes Absolute Auto 0.6 10^3/uL (1.2-3.8); Lymphocytes Percent Auto 4.7 % (20.5-60.0); Mean Corpuscular HGB Conc 30.5 g/dL (29.9-35.2); Mean Corpuscular Hemoglobin 29.6 pg (25.9-34.0); Mean Platelet Volume 9.9 fL (9.5-13.5); Monocytes Absolute Auto 0.4 10^3/uL (0.3-0.8); Monocytes Percent Auto 3.1 % (1.7-12.0); Neutrophils Absolute Auto 11.6 10^3/uL (1.4-6.5); Neutrophils Percent Auto 91.7 % (43.0-75.0); Platelet Count 185 10^3/uL (150-450); Red Blood Count 4.66 10^6/uL (4.70-6.10); Red Cell Distribution Width 13.5 % (11.0-15.0); White Blood Count 12.7 10^3/uL (4.0-11.0)
[2023-10-13 06:16] LABS: Alanine Aminotransferase 32 U/L (16-63); Albumin Globulin Ratio 0.8; Albumin Level 3.1 g/dL (3.4-5.0); Alkaline Phosphatase 68 U/L (46-116); Anion Gap 14.8; Aspartate Amino Transferase 20 U/L (15-37); BUN Creatinine Ratio 17.4; Bilirubin Total 0.4 mg/dL (0.2-1.0); Calcium 8.3 mg/dL (8.5-10.1); Chloride 104 mmol/L (98-107); Estimated GFR (African America >60 (>=60); Estimated GFR (Non-African Ame 59 (>=60); Globulin 3.8 g/dL; Glucose 216 mg/dL (74-106); Potassium 3.8 mmol/L (3.5-5.1); Sodium 140 mmol/L (136-145); Total Protein 6.9 g/dL (6.4-8.2)
[2023-10-13 07:39] LABS: Glucometer 188 mg/dL (74-106)
[2023-10-13] MEDS: METFORMIN HCL 500 MG TABLET PO (08:20)
[2023-10-13] MEDS: LOSARTAN POTASSIUM 50 MG TABLET PO (08:20)
[2023-10-13] MEDS: OSELTAMIVIR PHOSPHATE 75 MG CAPSULE PO ×2 (08:20→21:18)
[2023-10-13] MEDS: INSULIN ASPART 300 UNIT/3 ML PEN SUBQ ×4 (08:21→21:23)
--- NOTE | 2023-10-13 09:11 | XR_ITS ---
The [address] [address] Patient Name: LEONARD FAUSTIN MRN: [id number] date: 1950 Sex: M Assigned Patient Location: [place] Current Patient Location: [place] Accession/Order Number: [id number] Exam Date: 10/13/2023 09:50 Report Date: 10/13/2023 10:47 At the request of: SHAIKH ANUPAM Procedure: XR chest 1V EXAM: XR chest 1V HISTORY: SOB COMPARISON: 10/11/2023 TECHNIQUE: Chest X-ray AP, 1 view FINDINGS: Support devices: None. Lungs/pleura: No consolidation, effusion, or pneumothorax. Heart and mediastinum: Normal contours. Bones: No acute abnormality identified. XR/XR chest 1V Impression: No radiographic evidence of acute cardiopulmonary process. Electronically authenticated by: KARYNA MCKENNA Date: 10/13/2023 10:47
--- NOTE | 2023-10-13 10:29 | P.IMPN_ITS ---
Progress Note: A&P Assessment and Plan (1) COPD exacerbation: Assessment and Plan: Chronic obstructive pulmonary disease exacerbation likely secondary to influenza A infection. Continue with IV Solu-Medrol along with inhaled bronchodilators. Patient is also on azithromycin. Continue with close clinical monitoring. Persistent hypoxia and M[place], ordered CXR. (2) Respiratory failure with hypoxia: Assessment and Plan: Acutely hypoxic likely secondary to chronic obstructive pulmonary disease exacerbation. 90% on 2 L O2 and gets SOB on minimal exertion. Not improving as anticipated and continues to have persistent SOB and hypoxia. Ordered CXR to evaluated for changes and explanation for his persistent symptoms. Qualifiers: Chronicity: acute Qualified Code(s): J96.01 - Acute respiratory failure with hypoxia (3) Influenza A: Assessment and Plan: Droplet isolation. on Tamiflu. Supportive care. (4) Diarrhea: Assessment and Plan: Likely because of influenza. Resolved. Monitor. Gastrointestinal panel is negative Qualifiers: Diarrhea type: presumed infectious Qualified Code(s): R19.7 - Diarrhea, unspecified (5) Prediabetes: Assessment and Plan: Closely monitor blood glucoses while on the steroids. Sliding scale insulin. (6) HTN (hypertension): Assessment and Plan: Continue with home meds. Blood pressure is at goal. Qualifiers: Hypertension type: primary hypertension Qualified Code(s): I10 - E ssential (primary) hypertension (7) Hx pulmonary embolism: Assessment and Plan: Continue with xarelto Plan Change to inpatient as patient continues to be symptomatic and hypoxic. He has not made recovery as anticipated and will require continued inpatient monitoring and treatment for his resp failure, COPD exacerbation. Internal Medicine - PN: Subj Subjective Interval history: Seen and examined. No overnight events. Reports feeling tight and that he can't take deep breaths. He still gets out of breath on minimal exertion. Still requiring O2. Exam Constitutional Vital Signs, click to edit/add: Last Vital Signs Temp 98.1 F 10/13/23 07:41 Pulse 94 H 10/13/23 07:41 Resp 20 10/13/23 07:41 BP 140/70 10/13/23 08:20 Pulse Ox 93 L 10/13/23 07:51 O2 Del Method Nasal Cannula 10/13/23 07:51 O2 Flow Rate 2 10/13/23 07:51 Documenting provider has reviewed patient's vital signs: yes Common normals: no apparent distress and oriented x3 HENMT Common normals: normocephalic and head/scalp atraumatic Respiratory Common normals: normal respiratory effort Effort & inspection: able to speak in complete sentences Auscultation: wheezes expiratory wheezes and throughout and diminished lung sounds Other: Prolonged expiratory phase. Patient got visibly out of breath after he had to move a bit to help me examine him Cardio Common normals: no JVD, regular rate, regular rhythm, S1 normal heart sound and S2 normal heart sound Extremity Common normals: no clubbing, cyanosis or edema Neuro Common normals: oriented x3, CN's II-XII intact bilaterally, moves all extremities and no focal motor deficits Psych Common normals: mental status grossly normal and thought process normal Internal Medicine - PN: Obj Da Labs Labs: Laboratory Results - last 24 hr 10/11/23 10/12/23 10/12/23 09:43 11:30 16:37 WBC RBC Hgb Hct MCV MCH MCHC RDW Plt Count MPV Neut % (Auto) Lymph % (Auto) [place] % (Auto) Eos % (Auto) Baso % (Auto) Neut # (Auto) Lymph # (Auto) [place] # (Auto) Eos # (Auto) Baso # (Auto) Abs Immat Gran (auto) Imm/Tot Granulo (auto) Sodium Potassium Chloride Carbon Dioxide Anion Gap BUN Creatinine Est GFR ( Amer) Est GFR (Non-Af Amer) BUN/Creatinine Ratio Glucose Calcium Total Bilirubin AST ALT Alkaline Phosphatase Total Protein Albumin Globulin Albumin/Globulin Ratio Influenza Type A (PCR) [employer] POC Glucose 206 H 320 H 10/12/23 10/13/23 10/13/23 20:28 05:00 07:37 WBC 12.7 H RBC 4.66 L Hgb 13.8 L Hct 45.2 MCV 97.0 H MCH 29.6 MCHC 30.5 RDW 13.5 Plt Count 185 MPV 9.9 Neut % (Auto) 91.7 H Lymph % (Auto) 4.7 L [place] % (Auto) 3.1 Eos % (Auto) 0.0 L Baso % (Auto) 0.1 L Neut # (Auto) 11.6 H Lymph # (Auto) 0.6 L [place] # (Auto) 0.4 Eos # (Auto) 0.0 Baso # (Auto) 0.0 Abs Immat Gran (auto) 0.05 H Imm/Tot Granulo (auto) 0.4 Sodium 140 Potassium 3.8 Chloride 104 Carbon Dioxide 25.0 Anion Gap 14.8 BUN 21.0 H Creatinine 1.21 Est GFR ( Amer) >60 Est GFR (Non-Af Amer) 59 L BUN/Creatinine Ratio 17.4 Glucose 216 H Calcium 8.3 L Total Bilirubin 0.4 AST 20 ALT 32 Alkaline Phosphatase 68 Total Protein 6.9 Albumin 3.1 L Globulin 3.8 Albumin/Globulin Ratio 0.8 Influenza Type A (PCR) POC Glucose 208 H 188 H
[2023-10-13] MEDS: BUDESONIDE 0.5 MG/2 ML AMPULE NEB IH ×2 (10:50→23:12)
--- NOTE | 2023-10-13 11:09 | CT_ITS ---
[address] [address] Patient Name: LEONARD FAUSTIN MRN: [id number] date: 1950 Sex: M Assigned Patient Location: MS Current Patient Location: [place] Accession/Order Number: [id number] Exam Date: 10/13/2023 11:27 Report Date: 10/13/2023 12:49 At the request of: SHAIKH ANUPAM Procedure: CT chest wo con EXAMINATION: CT chest wo con HISTORY: SOB, hypoxia COMPARISON: CT chest 03/13/2022 TECHNIQUE: Multi-planar CT images were obtained without and/or with IV contrast as indicated by examination type. Axial, Coronal, and Sagittal images. Dose reduction techniques were achieved by using automated exposure control and/or adjustment of mA and/or kV according to patient size and/or use of iterative reconstruction technique. FINDINGS: LUNGS: Mild emphysematous changes. Trace amount of atelectasis or possibly infiltrates within lung bases. PLEURA: No mass, effusion, or pneumothorax. VASCULATURE: No abnormality. THERESA: No mass or adenopathy. MEDIASTINUM: No mass or adenopathy. CARDIAC: No enlargement, pericardial thickening, or significant calcification. AORTA: No aneurysm or dissection. CHEST WALL: No mass or axillary adenopathy. BONES: No bone lesion or fracture. LIMITED ABDOMEN: No suspicious findings Limited images of the upper abdomen. OTHER: Negative. CT/CT chest wo con IMPRESSION: 1. Mild to moderate emphysematous changes. 2. Trace amount of atelectasis within posterior lung bases; infiltrates are felt less likely. Electronically authenticated by: LEA WEEKS Date: 10/13/2023 12:49
[2023-10-13] MEDS: BENZOCAINE/MENTHOL SORE THROAT LOZENGE 1 LOZENGE PO ×2 (11:11→17:48)
[2023-10-13 11:17] LABS: Glucometer 211 mg/dL (74-106)
[2023-10-13] MEDS: FUROSEMIDE 40 MG/4 ML VIAL IVP (11:47)
[2023-10-13 16:30] LABS: Glucometer 246 mg/dL (74-106)
[2023-10-13] MEDS: AZITHROMYCIN 500 MG in 0.9 % SODIUM CHLORIDE 250 ML 250 MG IV (17:47)
[2023-10-13] MEDS: RIVAROXABAN 10 MG TABLET 20 MG PO (17:48)
[2023-10-13] MEDS: FAMOTIDINE 20 MG TABLET PO (21:18)
[2023-10-13 21:24] LABS: Glucometer 173 mg/dL (74-106)
[2023-10-13] MEDS: DIPHENHYDRAMINE HCL 25 MG CAPSULE PO (23:07)
[2023-10-14] VITALS (8 sets, daily range): BP systolic 129–160; BP diastolic 7–73; PULSE 98–111; RESP 20; TEMP 36.4–36.6; O2SAT 80–90
[2023-10-14] MEDS: METHYLPREDNISOLONE SOD SUCC PF 40 MG/ML VIAL IVP ×2 (00:42→08:53)
[2023-10-14] MEDS: BENZONATATE 100 MG CAPSULE 200 MG PO ×2 (00:42→08:57)
[2023-10-14] MEDS: IPRATROPIUM/ALBUTEROL SULFATE 3 ML AMPUL.NEB IH ×2 (03:56→07:45)
[2023-10-14] MEDS: GUAIFENESIN 600 MG TAB.ER.12H PO (04:25)
[2023-10-14] MEDS: BENZOCAINE/MENTHOL SORE THROAT LOZENGE 1 LOZENGE PO ×3 (05:14→10:33)
[2023-10-14 06:53] LABS: Basophils Percent Auto 0.1 % (0.2-2.0); Hematocrit 43.2 % (42.0-54.0); Hemoglobin 13.9 g/dL (14.0-18.0); Immature Granulocytes Abs Auto 0.09 10^3/uL (0.00-0.03); Immature Granulocytes Pct Auto 0.6 % (0.0-0.5); Lymphocytes Absolute Auto 0.8 10^3/uL (1.2-3.8); Lymphocytes Percent Auto 5.2 % (20.5-60.0); Mean Corpuscular HGB Conc 32.2 g/dL (29.9-35.2); Mean Corpuscular Hemoglobin 30.2 pg (25.9-34.0); Mean Corpuscular Volume 93.9 fL (80.0-94.0); Mean Platelet Volume 9.6 fL (9.5-13.5); Monocytes Absolute Auto 0.5 10^3/uL (0.3-0.8); Monocytes Percent Auto 3.1 % (1.7-12.0); Neutrophils Absolute Auto 13.3 10^3/uL (1.4-6.5); Platelet Count 219 10^3/uL (150-450); Red Cell Distribution Width 13.7 % (11.0-15.0); White Blood Count 14.6 10^3/uL (4.0-11.0)
[2023-10-14 07:01] LABS: Anion Gap 14.9; BUN Creatinine Ratio 17.5; Calcium 8.1 mg/dL (8.5-10.1); Carbon Dioxide 28.9 mmol/L (21.0-32.0); Chloride 101 mmol/L (98-107); Estimated GFR (African America >60 (>=60); Estimated GFR (Non-African Ame >60 (>=60); Glucose 187 mg/dL (74-106); Potassium 3.8 mmol/L (3.5-5.1); Sodium 141 mmol/L (136-145)
[2023-10-14] MEDS: INSULIN ASPART 300 UNIT/3 ML PEN SUBQ (08:53)
[2023-10-14] MEDS: OSELTAMIVIR PHOSPHATE 75 MG CAPSULE PO (08:53)
[2023-10-14] MEDS: LOSARTAN POTASSIUM 50 MG TABLET PO (08:54)
[2023-10-14] MEDS: METFORMIN HCL 500 MG TABLET PO (08:54)
--- NOTE | 2023-10-14 09:47 | PM.DS1 ---
DS: Providers Provider Date of admission: 10/13/23 11:20 Primary care physician: DAVID GALDAMEZ Consults: 10/11/23 16:10 Consult to Dietitian Routine Reason For Exam: Weight loss Reason for consultation: Weight loss Has provider been notified: No Attending physician on discharge: Shaikh Ifeanyi Discharging clinician: Shaikh Ifeanyi Anticipated date of discharge: 10/14/23 DS: Diagnosis Discharge Diagnosis (1) COPD exacerbation: Assessment and plan: exacerbation due to influenza. Improved, stable. C/w trelelgy. Will dc on prednisone taper. (2) Respiratory failure with hypoxia: Assessment and plan: required o2 via NC upto 2-3 L. He is 90% on RA today at rest. Discussed possibility of needing o2 and nurses will do a 6 min walk test to determine O2 need upon discharge. Suspect this need will likely be temporary and he will not need it correction Qualifiers: Chronicity: acute Qualified Code(s): J96.01 - Acute respiratory failure with hypoxia (3) Influenza A: Assessment and plan: D/c on tamiflu (4) Diarrhea: Assessment and plan: Likely from influenza. GI panel is negative Qualifiers: Diarrhea type: presumed infectious Qualified Code(s): R19.7 - Diarrhea, unspecified (5) Prediabetes: Assessment and plan: C/w go home on metformin. monitor blood glucose while on prednisone (6) HTN (hypertension): Assessment and plan: C/w olmesartan Qualifiers: Hypertension type: primary hypertension Qualified Code(s): I10 - Essential (primary) hypertension (7) Hx pulmonary embolism: Assessment and plan: C/w Charan DS: Summary Hospital Course Hospital Course: 73 y o male presented with worsening SOB, generalized abdominal discomfort and diarrhea and was evaluated in ED for it. His work up revealed COPD exacerbation resulting in acute resp failure with hypoxia. Resp panel was ordered and came back positive for influenza A infection. Patient was treated with systemic steroids, tamiflu, azithromycin. His recovery was slow and he continued to have hypoxia and SOB for which CT chest was ordered for better visualization of his lung parenchyma. CT showed emphysematous changes, atelectasis. No definite infiltrate. He was given one time dose of lasix 40 mg iv and that seemed to have helped him the most as he was 90% on RA and subjectively felt better than yesterday. I will order another 40 mg IV lasix before he goes home to get extra fluid off Its possible that he may have underlying HFpEF given his risk factors and it will not be unreasonable to get an ECHO as outpatient to assess his diastolic function. Patient is stable for d/c medically. He will go home on Prednisone taper, tamiflu and ventolin inhaler (he asked for it as his is almost out) Patient educated on worrisome signs and symptoms that should prompt him to seek care. Questions and concerns answered. Status at Discharge Functional status at discharge: independent ambulation Overall status at discharge: patient is back to baseline Time Spent with Patient Time attestation: Total time spent providing and/or coordinating discharge services: Time spent: greater than 30 minutes Exam Constitutional Vital Signs, click to edit/add: Last Vital Signs Temp 97.7 F 10/14/23 08:00 Pulse 110 H 10/14/23 08:00 Resp 20 10/14/23 08:00 BP 129/73 10/14/23 08:54 Pulse Ox 90 L 10/14/23 08:00 O2 Del Method Nasal Cannula 10/14/23 08:00 O2 Flow Rate 3 10/14/23 08:00 Documenting provider has reviewed patient's vital signs: yes Common normals: no apparent distress and oriented x3 Respiratory Common normals: normal respiratory effort Effort & inspection: able to speak in complete sentences Auscultation: wheezes expiratory wheezes and scattered wheezes and diminished lung sounds Cardio Common normals: no JVD, regular rate, regular rhythm, S1 normal heart sound and S2 normal heart sound Extremity Common normals: no clubbing, cyanosis or edema Neuro Common normals: oriented x3, CN's II-XII intact bilaterally, moves all extremities and no focal motor deficits Psych Common normals: mental status grossly normal and thought process normal DS: Data Data Completed and Pending Labs on day of discharge: Labs from last 24 hours 10/14/23 10/13/23 10/13/23 06:46 21:22 16:22 WBC 14.6 H RBC 4.60 L Hgb 13.9 L Hct 43.2 MCV 93.9 MCH 30.2 MCHC 32.2 RDW 13.7 Plt Count 219 MPV 9.6 Neut % (Auto) 91.0 H Lymph % (Auto) 5.2 L [place] % (Auto) 3.1 Eos % (Auto) 0.0 L Baso % (Auto) 0.1 L Neut # (Auto) 13.3 H Lymph # (Auto) 0.8 L [place] # (Auto) 0.5 Eos # (Auto) 0.0 Baso # (Auto) 0.0 Abs Immat Gran (auto) 0.09 H Imm/Tot Granulo (auto) 0.6 H Sodium 141 Potassium 3.8 Chloride 101 Carbon Dioxide 28.9 Anion Gap 14.9 BUN 20.0 H Creatinine 1.14 Est GFR ( Amer) >60 Est GFR (Non-Af Amer) >60 BUN/Creatinine Ratio 17.5 Glucose 187 H Calcium 8.1 L Direct Bilirubin POC Glucose 173 H 246 H 10/13/23 10/11/23 11:08 09:30 WBC RBC Hgb Hct MCV MCH MCHC RDW Plt Count MPV Neut % (Auto) Lymph % (Auto) [place] % (Auto) Eos % (Auto) Baso % (Auto) Neut # (Auto) Lymph # (Auto) [place] # (Auto) Eos # (Auto) Baso # (Auto) Abs Immat Gran (auto) Imm/Tot Granulo (auto) Sodium Potassium Chloride Carbon Dioxide Anion Gap BUN Creatinine Est GFR ( Amer) Est GFR (Non-Af Amer) BUN/Creatinine Ratio Glucose Calcium Direct Bilirubin 0.3 H POC Glucose 211 H Preliminary micro results at discharge 10/11/23 09:55 - Preliminary Blood NO GROWTH AT 36-48 HOURS. FINAL TO FOLLOW. 10/11/23 09:45 Blood Culture Result 1 - Preliminary Blood NO GROWTH AT 36-48 HOURS. FINAL TO FOLLOW. Discharge Plan Discharge Disposition: Home, Self-Care Discharge Medications: New prednisone 20 mg tablet 20 mg PO BID 5 Days Qty: 10 0RF albuterol sulfate 90 mcg/actuation HFA aerosol inhaler 2 inh inhalation Q4H PRN (Reason: shortness of breath or wheezing) Qty: 6.7 0RF oseltamivir [Tamiflu] 75 mg capsule 75 mg PO BID 5 Days Qty: 10 0RF Continued famotidine 20 mg tablet 20 mg PO .QHS Trelegy Ellipta 100-62.5-25 mcg blister with device 1 inh INHALATION Q24H furosemide 20 mg tablet 20 mg PO .QD PRN (Reason: edema) metformin 500 mg tablet 500 mg PO QDAY montelukast 10 mg tablet 10 mg PO .QHS olmesartan 20 mg tablet 20 mg PO QDAY Xarelto 20 mg tablet 20 mg PO Q24H ipratropium-albuterol 0.5 mg-3 mg(2.5 mg base)/3 mL solution for nebulization 3 ml inhalation Q4H PRN (Reason: shortness of breath or wheezing) Activity: increase activity as tolerated Diet: advance to your usual diet Forms: Portal Instructions Follow Up Appointments: PCP in one week
--- NOTE | 2023-10-14 10:48 | CM.NOTE ---
Important Message From Medicare discussed with pt, pt verbalizes understanding and signs paper. Original given to pt and copy placed on pt's chart.
--- NOTE | 2023-10-14 10:53 | CM.NOTE ---
Rounds made with Dr. Suggs, pt to discharge to home today. Dr. Suggs discussed with RN about walk test. SW notified for home oxygen need. Pt does not have a preference of oxygen company.
[2023-10-14 11:16] LABS: Glucometer 159 mg/dL (74-106)
--- NOTE | 2023-10-14 11:42 | SWNOTE1 ---
SW to set up home oxygen.
--- NOTE | 2023-10-14 11:51 | SWNOTE1 ---
Pt voiced he does not have a preference on home oxygen. SW sent referral to [facility], will need 2 liters of home oxygen. Referral included face sheet, script, walk test, and dc summary with face to face.
[2023-10-14] MEDS: ERTAPENEM SODIUM 1 GM in 0.9 % SODIUM CHLORIDE 50 ML IV (12:49)
--- NOTE | 2023-10-14 13:30 | CM.NOTE ---
Dr. Suggs completed JAIME form for IV antibiotics at discharge, faxed to Central[facility] and copy taken to [facility] clinic. Pt will receive a dose inpatient prior to discharge and will start [facility]IME tomorrow.
--- NOTE | 2023-10-14 13:55 | SWNOTE1 ---
GURDEEP called [facility] and was on hold for 30 minutes before speaking to billing representative. She voiced she does not see referral as it was not sent to the main fax, it was sent to [facility]. She called [place] and call was transferred back to her at the central call center. GURDEEP voiced frustrations to [facility] as customers are dc from hospital and wait on hold for 30-60 minutes and then they potentially run out of home oxygen. She was able to give SW another fax number, it was hte central fax number to send oxygen referral to so they can coordinate, she voiced to ximena it as a discharge. GURDEEP re-faxed face sheet, script, face to face dc summary, and walk test.
--- NOTE | 2023-10-14 15:08 | SWNOTE1 ---
GURDEEP called [facility] again and spoke to Anna, she verified they have received all information and pt can be sent home with tank. GURDEEP let nursing know and took tank to pt's room. GURDEEP provided pt with a number for [facility] to call on way home, pt's in room as well and they voiced understanding. Pt is going home on 2 liters oxygen.
--- NOTE | 2023-10-15 13:09 | CM.DCFOLLOWU ---
Person spoke with: patient How are you feeling? well How is your pain? no pain Did you understand your discharge instructions? yes Do you have any questions about your discharge instructions? no Were you given any prescriptions at discharge? yes Were you able to get your prescriptions filled? yes Do you understand how to take your medications as ordered? yes Do you have any questions about your follow up appointment and do you plan to keep your follow up appointment? no questions, came for first JAIME appointment, has 3 more days to go Is there anything else that you would like to discuss? no Questions/Comments/Concerns/Other: N/A
== END 2023-10-14 15:37 | disposition home or self-care (01) | DRG 189 ==
LOC: ER 14:42 → MS 15:43
PROVIDERS: Nurse Practitioner; Admitting Provider Family Medicine; Emergency Provider Emergency Medicine; PCP Family Medicine; Visit Provider Internal Medicine
DX: J96.21 Acute and chronic respiratory failure with hypoxia (principal); J15.5 Pneumonia due to Escherichia coli; J44.1 Chronic obstructive pulmonary disease with (acute) exacerbation; Z16.39 Resistance to other specified antimicrobial drug; J44.0 Chronic obstructive pulmonary disease with (acute) lower respiratory infection; I50.30 Unspecified diastolic (congestive) heart failure; J10.1 Influenza due to other identified influenza virus with other respiratory manifestations; I11.0 Hypertensive heart disease with heart failure; J43.9 Emphysema, unspecified; E86.0 Dehydration; K86.9 Disease of pancreas, unspecified; R73.03 Prediabetes; Z86.711 Personal history of pulmonary embolism; Z86.16 Personal history of COVID-19; Z87.891 Personal history of nicotine dependence; Z79.899 Other long term (current) drug therapy; Z79.01 Long term (current) use of anticoagulants; Z79.84 Long term (current) use of oral hypoglycemic drugs; Z79.51 Long term (current) use of inhaled steroids; Z82.49 Family history of ischemic heart disease and other diseases of the circulatory system; Z83.3 Family history of diabetes mellitus; Z83.6 Family history of other diseases of the respiratory system; R63.4 Abnormal weight loss; Z68.32 Body mass index [BMI] 32.0-32.9, adult
CPT/HCPCS: 0202U; 36415; 71045; 71250; 74177; 80048; 80053; 81003; 82248; 82948; 83605; 83735; 83880; 84145; 84484; 85025; 85610; 85730; 86850; 86900; 86901; 87040; 87070; 87150; 87186; 87205; 87507; 87804; 87811; 93005; 94640; 94667; 94668; 94761; 96361; 96365; 96366; 96367; 96368; 96375; 96376; 99285; J0456; J1170; J1335; J2920; J2930

== ENCOUNTER 2023-10-18 07:41 | Outpatient (RCR) | payer MEDICARE, SELFPAY ==
[2023-10-15] MEDS: ERTAPENEM SODIUM 1 GM in 0.9 % SODIUM CHLORIDE 50 ML IV (10:13)
[2023-10-16] MEDS: ERTAPENEM SODIUM 1 GM in 0.9 % SODIUM CHLORIDE 50 ML IV (10:12)
[2023-10-16 10:21] VITALS: BP 156/79; PULSE 89; RESP 20; TEMP 36.6; O2SAT 91
--- NOTE | 2023-10-16 10:42 | PC.NURSE ---
1000Arrival ambultory with oxygen at 3 lpm nc, dyspneic on arrival spo2 87-88% after approx 5 mins recovery, spo2 up to 91-92%. 1010 IV antibiotic rt hand excellent blood return, flushes easily. 1040 IV flushed/saline lock. wrapped iv site rt hand with coban for protection, transported to car with wc due to exertional dyspnea, patient much appreciated, instructed where to park so he doesn't have so far to walk for next appts.
[2023-10-17 09:38] VITALS: BP 161/84; PULSE 82; RESP 20; TEMP 36.6; O2SAT 90
[2023-10-17] MEDS: ERTAPENEM SODIUM 1 GM in 0.9 % SODIUM CHLORIDE 50 ML IV (09:53)
[2023-10-18] MEDS: ERTAPENEM SODIUM 1 GM in 0.9 % SODIUM CHLORIDE 50 ML IV (09:46)
[2023-10-18 10:01] VITALS: BP 144/83; PULSE 71; RESP 20; TEMP 36.3; O2SAT 93
--- NOTE | 2023-10-18 10:05 | PC.NURSE ---
0940: Pt. to [facility] amb. with O2 intact at 2L n/c. Seated in recliner. VSS. Pt. with existing iv intact to right hand. Flushes easily. No redness, edema or drainage. Denies pain to site. IV Invanz initiated as ordered. Given water and cookie.
--- NOTE | 2023-10-18 10:25 | PC.NURSE ---
1020: IV Invanz infused without s&s of adverse reaction. IV d/c'd, pressure to site. 1022: Pt. denies needs or c/o. D/c'd amb. to home with O2 intact.
== END 2023-11-03 23:59 | disposition home or self-care (01) ==
LOC: INF 07:41
PROVIDERS: PCP Family Medicine; Visit Provider Internal Medicine
DX: J15.5 Pneumonia due to Escherichia coli (principal)
CPT/HCPCS: 96365; J1335

== ENCOUNTER 2024-08-12 08:57 | Outpatient (OUT) | payer MEDICARE, SELFPAY ==
--- NOTE | 2024-08-12 09:09 | US_ITS ---
The [address] [address] Patient Name: LEONARD FAUSTIN MRN: [id number] date: 1950 Sex: M Assigned Patient Location: [place] Current Patient Location: [place] Accession/Order Number: [id number] Exam Date: 08/12/2024 09:11 Report Date: 08/12/2024 10:55 At the request of: ROLANDA JIN Procedure: US renal bladder EXAMINATION: US renal bladder HISTORY: cyst of kidney N28.1 COMPARISON: No relevant comparison available. TECHNIQUE: Ultrasound examination was performed of the bladder. FINDINGS: Right Kidney: Normal in size, contour and cortical echotexture. No solid cortical mass or hydronephrosis. 6.5 cm cortical cyst. The cortex measures 1.2 cm. Height: 5.31 cm Length: 12.35 cm Width: 5.99 cm Left Kidney: Normal in size, contour and cortical echotexture. The cortex measures 1.1 cm. No solid cortical mass or hydronephrosis. Multiple anechoic areas the largest 2 measuring 5.3 and 5.5 cm, simple cortical cyst. 7 mm nonobstructing nephrolith. Height: 6.36 cm Length: 12.51 cm Width: 5.15 cm Urinary bladder measures 7.6 x 7.0 x 5.4 cm. Prevoid volume 202 mL. Post void volume 21 mL Ureteral jets: Visualized bilaterally US/US renal bladder IMPRESSION: Bilateral renal cortical cysts Electronically authenticated by: MAXIMUS HUMPHRIES Date: 08/12/2024 10:55
[2024-08-12 10:59] LABS: Prostate Specific Antigen Scrn 1.19 ng/mL (<=4.00)
== END 2024-08-12 08:58 | disposition home or self-care (01) ==
LOC: US 08:58
PROVIDERS: PCP Family Medicine; Visit Provider Urology
DX: N28.1 Cyst of kidney, acquired (principal); Z12.5 Encounter for screening for malignant neoplasm of prostate
CPT/HCPCS: 36415; 76770; G0103